=== PATIENT | female | born 1990 | race Caucasian/White ===

== ENCOUNTER 2022-11-15 09:48 | Emergency (ER) | payer BC, SELFPAY ==
--- NOTE | 2022-11-15 09:53 | ED.URI ---
HPI - URI/Sore Throat General Chief Complaint: Upper Respiratory Infection Stated Complaint: Strep symptoms Time Seen by Provider: 11/15/22 09:54 Source: patient Mode of arrival: ambulatory Limitations: no limitations History of Present Illness HPI Narrative: Shama is a 31-year-old female patient presenting to the clinic today with complaints of possible strep throat. She reports she has had a sore throat, low-grade fever, sinus pressure, and headache since last night. She reports she does work in [employer] and has had strep exposure. MD elicited complaint: fever and sore throat Related Data Home Medications Medication Instructions Recorded Confirmed alprazolam 2 mg tablet 2 mg PO TID PRN Anxiety 11/15/22 11/15/22 citalopram 20 mg tablet 20 mg PO DAILY 11/15/22 11/15/22 norgestimate 0.25 mg-ethinyl 1 tablet PO DAILY 11/15/22 11/15/22 estradiol 35 mcg tablet (Sprintec (28)) Allergies Allergy/AdvReac Type Severity Reaction Status Date / Time No Known Allergies Allergy Unverified 11/15/22 10:01 Review of Systems Review of Systems: Pertinent positives per HPI. Patient denies any fever, chills, rash, headache, visual changes, dizziness, cough, shortness of breath, chest pain, palpitations, nausea, vomiting, diarrhea, constipation, abdominal pain, or any urinary issues. PMFSH Comments At the time of my signature, I reviewed and agree with the nursing past medical, surgical, social, and family history. There is no relevant family history pertinent to the patient complaint. Exam Narrative: General: Well-developed, well nourished, in no apparent distress Head: Normocephalic, atraumatic Eyes: Pupils equally round and reactive to light bilaterally, EOM intact, sclera and conjunctive clear, no discharge, lids normal Ears: TMs intact and clear, ear canals clear, no drainage, grossly hearing normal. Nose: Nares patent, clear nasal discharge, no inflammation, no sinus tenderness. Mouth: Oral pharynx red with bilateral tonsillar enlargement without lesions or masses, good dentition, MMM. Neck: Supple, trachea midline, enlargement of anterior cervical nodes, no thyroid masses or goiter palpable. Cardio: Regular rate and rhythm, s1 and s2 normal, no murmur appreciated. Resp: Clear to auscultation bilaterally, no rhonchi, rales, wheezing or rubs Course Course Emergency Course: Portions of this record may have been created with voice recognition software. Level of Care: Express Care Visit Vital Signs Vital signs: Vital signs reviewed MDM - URI/Sore Throat MDM Narrative Medical decision making narrative: At the patient is resting comfortably on the exam table. Strep screen was obtained and was positive in the clinic. Prescription for amoxicillin was sent to the pharmacy. Supportive measures were discussed with the patient she voiced understanding discharge instructions agrees to treatment plan. Differential Diagnosis Differential diagnosis: Likely upper respiratory infection (COVID), otitis media, sinusitis, viral infection, bronchitis, influenza, pharyngitis and other (COVID) Discharge Plan Discharge Clinical Impression: Strep pharyngitis Patient Disposition: Home, Self-Care Condition: Stable Instructions: Antibiotic Form, Strep Throat (ED) Additional Instructions: Take prescription medications only as prescribed-amoxicillin Change your tooth brush in 24 hours after initiation of the antibiotics. Increase fluids and stay well hydrated Tylenol/motrin for pain/fever Flonase and OTC antihistamines as directed Vicks vapor rub to open sinuses Sinus rinses for congestion Cepacol spray, cough drops, throat lozenges, warm tea with honey/lemon, gargle salt water to soothe throat BRAT diet for diarrhea Clear liquids x 24 hours then advance as tolerated for nausea/vomiting Go to the ED if you develop a worsening in your condition- high fever not controlled by Tylenol
[2022-11-15 10:05] VITALS: BP 129/89; PULSE 100; RESP 16; TEMP 36.9; O2SAT 99
== END 2022-11-15 10:53 | disposition home or self-care (01) ==
PROVIDERS: Emergency Provider Nurse Practitioner Family; PCP Family Medicine
DX: J02.0 Streptococcal pharyngitis (principal); Z79.899 Other long term (current) drug therapy
CPT/HCPCS: 87880; 99213; G0463

== ENCOUNTER 2023-07-11 11:21 | Emergency (ER) | payer BC, SELFPAY ==
--- NOTE | ~2023-07-11 | US_ITS ---
EXAMINATION: US right upper quadrant DATE: 07/11/2023 13:06 INDICATION: Right upper quadrant abdominal pain. TECHNIQUE: Multiple grayscale and Doppler ultrasound images of the abdomen were obtained. COMPARISON: None FINDINGS: The visualized portions of the head, body, and tail of the pancreas are normal. There is di ffuse hepatic steatosis. There is normal flow in main portal vein. There are gallstones in the gallbl adder, which is normal in size. No gallbladder wall thickening. There is a positive sonographic Lionel y sign. The common duct is normal and measures 5 mm. IMPRESSION: 1. Cholelithiasis and positive sonographic Middleton sign, but no gallbladder distention or gallbladder wall thickening to suggest acute cholecystitis. 2. Diffuse hepatic steatosis. Reviewed, dictated and finalized at location A. IMPRESSION: 1. Cholelithiasis and positive sonographic Middleton sign, but no gallbladder dist ention or gallbladder wall thickening to suggest acute cholecystitis. 2. Diffuse hepatic steatosis.
[2023-07-11 11:21] VITALS: BP 176/108; PULSE 99; RESP 19; TEMP 36.4; O2SAT 100
--- NOTE | 2023-07-11 12:31 | ECG_ITS ---
[facility] [address] Test Date: 2023-07-11 Pat Name: Ember Woody Department: Room: Gender: F Lead Pharmacy Technician: ONESIMO : [id number] Requested By: Katie Vizcarra Order Number: [id number] Fredy MD: Michelet Frazier M.D. Measurements Intervals [place] Rate: 94 P: 59 IA: 127 QRS: 4 QRSD: 86 T: 24 QT: 374 QTc: 470 Interpretive Statements SINUS RHYTHM POSSIBLE LEFT ATRIAL ENLARGEMENT [-0.1mV P WAVE IN V1/V2] BORDERLINE ECG No previous ECG available for comparison Electronically Signed On 07-11-2023 14:58:27 CDT by Michelet Frazier M.D.
[2023-07-11] MEDS: ONDANSETRON INJ 4 MG/2 ML VIAL IV PUSH (13:12)
[2023-07-11] MEDS: KETOROLAC 30 MG/ML VIAL (*BKC) IV PUSH (13:13)
[2023-07-11] MEDS: FAMOTIDINE 20 MG/2 ML VIAL IV PUSH (13:16)
[2023-07-11 13:37] LABS: Basophils Percent Auto 0.2 % (0.2-1.2); Eosinophils Absolute Auto 0.2 K/mm3 (0-0.3); Eosinophils Percent Auto 1.3 % (0-4.4); Hematocrit 44.8 % (37.0-47.0); Hemoglobin 15.2 g/dL (12.0-15.0); Immature Granulocyte Absolute 0.04 K/mm3 (0.00-0.031); Immature Granulocyte Percent A 0.3 % (0-0.5); Lymphocytes Absolute Auto 2.09 K/mm3 (0.9-3.2); Lymphocytes Percent Auto 15.6 % (18.3-44.2); Mean Corpuscular HGB Conc 33.9 g/dl (32-36); Mean Corpuscular Hemoglobin 28.5 pg (26-34); Mean Corpuscular Volume 84.1 fl (80-100); Mean Platelet Volume 9.3 fl (7.4-10.4); Monocytes Absolute Auto 0.7 K/mm3 (0.1-0.6); Monocytes Percent Auto 4.9 % (2.6-8.5); Neutrophils Absolute Auto 10.4 K/mm3 (1.3-6.7); Neutrophils Percent Auto 77.7 % (45.5-73.1); Platelet Count Result 328 k/mm3 (150-375); Red Blood Count 5.33 M/mm3 (4.2-5.4); Red Cell Distribution Width 12.4 % (11.5-14.5); White Blood Count 13.4 K/mm3 (4.5-10.0)
[2023-07-11 13:51] LABS: Alanine Aminotransferase 38 U/L (6-35); Albumin Level 4.7 g/dL (3.5-5.1); Alkaline Phosphatase 121 U/L (38-126); Anion Gap 8 mmol/L (4-12); Aspartate Amino Transferase 35 U/L (14-36); Bilirubin,Total 0.6 mg/dL (0.2-1.3); Blood Urea Nitrogen 7 mg/dL (7-17); Calcium 9.2 mg/dL (8.4-10.2); Carbon Dioxide 22 mmol/L (22-30); Chloride 104 mmol/L (98-107); Estimated CRCL calculation 139 ml/min; Estimated Glomerular Filt Rate > 60; Glucose 113 mg/dL (65-110); Lipase 58 U/L (23-300); Potassium 3.6 mmol/L (3.4-5.0); Sodium 134 mmol/L (137-145)
[2023-07-11 13:55] LABS: Prothrombin Time 13.6 Seconds (11.1-14.7)
[2023-07-11 13:56] LABS: Partial Thromboplastin Time 27.2 Seconds (22.3-36.8)
[2023-07-11 14:02] LABS: Troponin I < 0.012 ng/mL (0.000-0.034)
--- NOTE | 2023-07-11 14:43 | ED.ABDPAIN ---
HPI - Abdominal Pain General Chief Complaint: Abdominal Pain Stated Complaint: abd pain Time Seen by Provider: 07/11/23 12:22 History of Present Illness HPI narrative: Pt presents with epigastric and RUQ abdominal pain since last night that started after eating fried chicken. Pt is also nauseated but denies fever. Pt still has GB. Related Data Home Medications Medication Instructions Recorded Confirmed alprazolam 2 mg tablet 2 mg PO TID PRN Anxiety 11/15/22 11/15/22 citalopram 20 mg tablet 20 mg PO DAILY 11/15/22 11/15/22 norgestimate 0.25 mg-ethinyl 1 tablet PO DAILY 11/15/22 11/15/22 estradiol 35 mcg tablet (Sprintec (28)) Allergies Allergy/AdvReac Type Severity Reaction Status Date / Time No Known Allergies Allergy Unverified 11/15/22 10:01 Review of Systems Review of Systems: All systems reviewed & are unremarkable except as noted in HPI and below Exam Const: General: healthy appearing Nutritional Appearance: well nourished Orientation/consciousness: patient oriented x3 Limitations: no limitations Resp: Effort & Inspection: normal respiratory effort Auscultation: clear to auscultation bilaterally Cardio: Rate: regular rate Rhythm: regular rhythm GI: GI Palp: Yes Soft to palpation and Yes Tenderness to palpation present (GI) (RUQ and epigastric region) Auscultation: normal bowel sounds Skin: General skin exam: normal color Wounds: no wounds Neuro: General: patient oriented x3, moves all extremities, no meningeal signs and CN's II-XI intact bilaterally Speech: normal speech Extrem: General: normal to inspection and no clubbing, cyanosis or edema Psych: Mental Status: mental status grossly normal Affect: normal affect Attitude: cooperative Course Vital Signs Vital signs: Vital Signs Temperature 97.6 F 07/11/23 11:21 Pulse Rate 99 07/11/23 11:21 Respiratory Rate 19 07/11/23 11:21 Blood Pressure 176/108 H 07/11/23 11:21 Pulse Oximetry 100 07/11/23 11:21 Oxygen Delivery Room Air 07/11/23 11:21 Temperature 98.6 F 07/11/23 14:57 Pulse Rate 80 07/11/23 14:57 Respiratory Rate 20 07/11/23 14:57 Blood Pressure 152/90 H 07/11/23 14:57 Pulse Oximetry 100 07/11/23 11:21 Oxygen Delivery Room Air 07/11/23 11:21 MDM - Abdominal Pain MDM Narrative Medical decision making narrative: pt develped RUQ and epigastric abdominal pain and nausea after eating fried chicken last night. will need labs and ruq sono. toradol and zofran. Pt feels better after meds. sono shows gallstones but no wall thickening. CMP and lipase normal, slight elevation of WBC. discussed with Dr. Churchill and agrees to see pt in follow up. Differential Diagnosis Differential diagnosis: Likely gastroenteritis, pancreatitis, small bowel obstruction and other (cholelithiasis or cholecystitis.) Lab Data 07/11/23 13:18 07/11/23 13:18 Labs: Lab Results 07/11/23 Range/Units 13:18 WBC 13.4 H (4.5-10.0) K/mm3 RBC 5.33 (4.2-5.4) M/mm3 Hgb 15.2 H (12.0-15.0) g/dL Hct 44.8 (37.0-47.0) % MCV 84.1 (80-100) fl MCH 28.5 (26-34) pg MCHC 33.9 (32-36) g/dl RDW 12.4 (11.5-14.5) % Plt Count 328 (150-375) k/mm3 MPV 9.3 (7.4-10.4) fl Immature Gran % (Auto) 0.3 (0-0.5) % Neut % (Auto) 77.7 H (45.5-73.1) % Lymph % (Auto) 15.6 L (18.3-44.2) % [place] % (Auto) 4.9 (2.6-8.5) % Eos % (Auto) 1.3 (0-4.4) % Baso % (Auto) 0.2 (0.2-1.2) % Lymph # (Auto) 2.09 (0.9-3.2) K/mm3 [place] # (Auto) 0.7 H (0.1-0.6) K/mm3 Eos # (Auto) 0.2 (0-0.3) K/mm3 Baso # (Auto) 0.0 (0.0-0.1) K/mm3 Abs Immat Gran (auto) 0.04 H (0.00-0.031) K/mm3 Absolute Neuts (auto) 10.4 H (1.3-6.7) K/mm3 Absolute Nucleated RBC 0.000 (0.0-0.012) K/mm3 Nucleated RBC % 0.0 (0.0-0.2) % PT 13.6 (11.1-14.7) Seconds INR 1.0 APTT 27.2 (22.3-36.8) Seconds Sodium 134 L (137-145) mmol/L Potassium 3.6 (3.4-5.0) mmol/L Chloride 104 (98-107)
[2023-07-11 14:57] VITALS: BP 152/90; PULSE 80; RESP 20; TEMP 37
== END 2023-07-11 15:57 | disposition home or self-care (01) ==
PROVIDERS: Emergency Provider Emergency Medicine; PCP Family Medicine
DX: K80.20 Calculus of gallbladder without cholecystitis without obstruction (principal); Z79.899 Other long term (current) drug therapy; Z79.3 Long term (current) use of hormonal contraceptives; K76.0 Fatty (change of) liver, not elsewhere classified
CPT/HCPCS: 36415; 76705; 80053; 83690; 84484; 85025; 85610; 85730; 93005; 96374; 96375; 99284; J1885; J2405

== ENCOUNTER 2023-07-28 11:54 | Outpatient (CLI) | payer BC, SELFPAY ==
[2023-07-28 12:19] LABS: Basophils Percent Auto 0.4 % (0.2-1.2); Eosinophils Absolute Auto 0.1 K/mm3 (0-0.3); Eosinophils Percent Auto 1.6 % (0-4.4); Hematocrit 43.3 % (37.0-47.0); Hemoglobin 14.1 g/dL (12.0-15.0); Immature Granulocyte Absolute 0.02 K/mm3 (0.00-0.031); Immature Granulocyte Percent A 0.2 % (0-0.5); Lymphocytes Absolute Auto 2.39 K/mm3 (0.9-3.2); Lymphocytes Percent Auto 28.1 % (18.3-44.2); Mean Corpuscular HGB Conc 32.6 g/dl (32-36); Mean Corpuscular Hemoglobin 28.1 pg (26-34); Mean Corpuscular Volume 86.4 fl (80-100); Mean Platelet Volume 9.1 fl (7.4-10.4); Monocytes Absolute Auto 0.6 K/mm3 (0.1-0.6); Monocytes Percent Auto 7.5 % (2.6-8.5); Neutrophils Absolute Auto 5.3 K/mm3 (1.3-6.7); Neutrophils Percent Auto 62.2 % (45.5-73.1); Platelet Count Result 325 k/mm3 (150-375); Red Blood Count 5.01 M/mm3 (4.2-5.4); Red Cell Distribution Width 12.7 % (11.5-14.5); White Blood Count 8.5 K/mm3 (4.5-10.0)
== END 2023-07-28 11:55 | disposition home or self-care (01) ==
LOC: ANHSURGERY 12:02
PROVIDERS: PCP Nurse Practitioner Family; Visit Provider Surgery
DX: K80.10 Calculus of gallbladder with chronic cholecystitis without obstruction (principal)
CPT/HCPCS: 36415; 85025

== ENCOUNTER 2023-08-03 00:22 | Day surgery (SDC) | payer BC, SELFPAY ==
[2023-07-27 14:20] VITALS: BMI 34.0
--- NOTE | 2023-07-27 14:21 | PC.NURSE ---
Report to the Outpatient Waiting Room, entrance under the green pavilion located off [facility], at time _1130_ on date _[id number]_. Planned Procedure Time: _130pm_. Time changes happen often and if your time is changed the preop area will call you the afternoon before. - You and your visitor will be asked to self-screen and do not enter if you have any COVID symptoms. - A mask is optional within the hospital at this time. Patients may have clear liquids (water, carbonated beverages, clear teas, apple juice) until 3 hours prior to surgery with a maximum of 20 ounces. - No food from midnight until time of surgery Take the following medications with a SIP of water the morning of surgery: __Citalopram, Sprintec and if needed Alprazolam DO NOT STOP ANY OF YOUR OTHER PRESCRIPTION MEDICATIONS PRIOR TO SURGERY ?EXCEPT THE FOLLOWING Medications to discontinue per physician None No Tums day of surgery. Date to take last dose Please no make-up, nail slovak, hairspray, perfume, deodorant, or body powder the day of surgery. No jewelry (including any body piercings) or valuables the day of surgery, leave them at home. Please take a shower or bath the night before, or the morning of, surgery with an antibacterial soap. Wear comfortable, loose fitting clothing. - Jewelry must be removed prior to entering the operating room. Rings and piercings that are not removed may be cut off. - The hospital will not accept responsibility for valuables. - Please leave all valuables, including medications, at home the day of surgery. If you are going home after surgery, a licensed bicycle taxi driver must drive you home. - NO public transportation without another adult if you receive anesthesia. - We recommend that an adult stay with you for 24 hours following discharge. - We also recommend that you do not drive, make important decision, drink alcoholic beverages, or take any drugs that were not prescribed by your health care provider for at least 24 hours after your discharge time. Follow any additional instructions given to you from your surgeon. If you or anyone in your household have experienced Covid symptoms in the past week, please notify your surgeon or the nurse liaison at the phone number below for possible testing. Telephone instructions given to _Ember__and asked if any additional questions and then verbalized understanding. Patient advised to call surgeon office or pre surgery nurse liaison [phone] if any additional questions.
[2023-08-03] VITALS (14 sets, daily range): BP systolic 136–178; BP diastolic 79–106; PULSE 83–102; RESP 12–20; TEMP 36.1–36.3; O2SAT 94–100
--- NOTE | 2023-08-03 08:05 | WPDHPUPDATE1 ---
History and Physical Update Update Date/Time: 08/03/23 08:05 History and Physical has been reviewed, including an updated exam of the patient. There are NO changes in the patient's condition. Risks, benefits, and alternatives have been discussed and questions answered. Patient agrees to proceed with procedure.
[2023-08-03] MEDS: LACTATED RINGERS 1,000 ML 30 ML IV CONT ×2 (08:30→12:35)
[2023-08-03] MEDS: ACETAMINOPHEN 500 MG TABLET 1000 MG PO (08:45)
[2023-08-03] MEDS: KETOROLAC 15 MG/ML VIAL (*BKC) IV PUSH (08:46)
[2023-08-03 09:02] LABS: Alanine Aminotransferase 35 U/L (6-35); Albumin Level 4.4 g/dL (3.5-5.1); Alkaline Phosphatase 83 U/L (38-126); Amylase 67 U/L (30-110); Aspartate Amino Transferase 30 U/L (14-36); Bilirubin,Total 0.7 mg/dL (0.2-1.3); Lipase 98 U/L (23-300)
--- NOTE | 2023-08-03 10:06 | WPDANESEPPF ---
Anes - Initial Pre Proc Eval Procedure: Operation Date: 08/03/23 10:00 Proposed Procedures p Laparoscopic Cholecystectomy - Vic Churchill MD Date/Time: 08/03/23 10:06 Surgeon: Vic Churchill MD Pre Op Diagnosis: Chr Cholecystitis with Stones Patient Data Age: 32 Gender: F Height: 1.7 m Weight: 99.1 kg Last Vital Signs Temp 36.3 C L 08/03/23 08:14 Pulse 102 H 08/03/23 08:14 Resp 18 08/03/23 08:14 BP 147/101 H 08/03/23 08:14 Pulse Ox 100 08/03/23 08:14 O2 Del Method Room Air 08/03/23 08:14 Allergies Allergy/AdvReac Type Severity Reaction Status Date / Time No Known Allergies Allergy Verified 08/03/23 08:21 Home Medications Medication Instructions Recorded Confirmed Type alprazolam 2 mg tablet 2 mg PO TID PRN Anxiety 11/15/22 08/03/23 History citalopram 20 mg tablet 20 mg PO DAILY 11/15/22 08/03/23 History norgestimate 0.25 mg-ethinyl 1 tablet PO DAILY 11/15/22 08/03/23 History estradiol 35 mcg tablet (Sprintec (28)) calcium carbonate (Tums) 200 mg PO BID PRN Acid Reflux 07/27/23 08/03/23 History famotidine 20 mg tablet (Pepcid) 20 mg PO BID 07/27/23 08/03/23 History Laboratory Tests 08/03/23 08:35 Total Bilirubin 0.7 mg/dL (0.2-1.3) Direct Bilirubin 0.0 mg/dL (0-0.3) AST 30 U/L (14-36) ALT 35 U/L (6-35) Alkaline Phosphatase 83 U/L (38-126) Total Protein 8.0 g/dL (6.3-8.2) Albumin 4.4 g/dL (3.5-5.1) Amylase 67 U/L (30-110) Lipase 98 U/L (23-300) Patient hx anesthesia problems: none Family hx anesthesia problems: none Results Review: All pre-operative results and documents have been reviewed as part of the pre-operative evaluation. [facility] Past Medical History Medical History Anxiety Surgical History Surgical History History of delivery x2 History of tubal ligation Family History Family History Mother Breast cancer Diabetes mellitus Hypertension Depression Grandparent Diabetes mellitus Hypertension Depression Father Hypertension Depression Other Asthma Social History Social History Smoking status: Never smoker Alcohol intake: never Do You Feel Safe in your Home?: Yes Lack of Transportation: No Lack of Food: Never True Current Housing: I Have Housing Concerned About Future Housing: No Difficulty Paying Gas/Electric Bills: No Difficulty Paying for Meds: No Currently Unemployed: No Education: Trade/Vocational Certificate Difficulty w/ Childcare or Family Care: No Living arrangements: with family Spiritual care concerns: No Anes - Eval Final PreProcedure Day of Procedure 08/03/23 10:06 Patient weight: obese Heart: regular rate and rhythm Lungs: clear to auscultation Airway: Mallampati scale class II Neurological: alert and oriented Last oral intake: >/= 8 hours ASA classification: II Emergent: no Anesthetic plan: proceed Anesthesia type and monitoring: general ETT and standard monitoring Results Review: All pre-operative results and documents have been reviewed as part of the pre-operative evaluation. Informed Consent: The patient's anesthetic plan and its attendant risks and benefits were discussed with the patient/family/POA. Questions were solicited and answers provided to the satisfaction of the patient/family/POA.
[2023-08-03] MEDS: ceFAZolin 2 GM/D5W 50 ML 2 GM/50 ML BAG IVPB (10:24)
[2023-08-03] MEDS: BUPIVACAINE/EPINEPHRINE 0.5% 10 ML VIAL 30 ML INFILTRATE (10:25)
[2023-08-03] MEDS: HEMOSTATIC MATRIX (SURGIFLO with THROMBIN) KIT 1 KIT XX (12:05)
--- NOTE | 2023-08-03 12:57 | W.PM.PROC2 ---
Procedure Note - Detailed Date of Procedure 08/03/23 Pre-op Diagnosis Chr Cholecystitis with Stones Post-op Diagnosis Other (Acute and chronic cholecystitis with gallstones with cystic duct obstruction) Procedure Performed Difficult laparoscopic cholecystectomy Surgeon Vic Churchill MD Career Placement Specialist Katina Wolfe KNOWLEDGE MANAGEMENT ADVISOR Anesthesia General and Local Indications Patient had a single episode of severe right upper quadrant abdominal pain after eating some fried chicken in early July. She went to the emergency room. Her liver enzymes were normal. She had tenderness in the epigastrium and right upper quadrant. Ultrasound showed she had gallstones and a positive sonographic Middleton sign although there was no gallbladder wall thickening or pericholecystic fluid. She improved while in the emergency room and was discharged. I saw her in the office. She is taken to surgery now for laparoscopic cholecystectomy. Findings Patient actually had severe cholecystitis, both acute and chronic. There were numerous adhesions to the gallbladder and its wall was very thickened and hypervascular. The neck of the gallbladder and the cystic duct were both dilated although no stones were noted in the cystic duct and the liver enzymes prior there is surgery were normal. Dissecting out the cholecystohepatic triangle was exceptionally difficult. Literally any dissection even using cautery resulted in bleeding. The distal gallbladder and proximal cystic duct had spiraled as the cystic artery was laying over these structures and somehow kept the length constant while the distal gallbladder and proximal cystic duct enlarged due to pressure. Gallbladder was very difficult to grasp and appeared to be chock full of stones. Falciform ligament was extremely large and thickened and required us to place a 5th port in the left mid abdomen to retract not only the falciform ligament but some of the medial segment of the left lobe of the liver so that we could see the edge of the gallbladder at the liver surface. The surgery took nearly 2 hours which is 3 or even 4 times longer than usual. Blood loss was 100 cc which is at least 4 times more than normal. The surgery was extremely difficult clearly 1 of my top 10% most difficult cholecystectomies. Description of Procedure Patient was taken to surgery and induced into general anesthesia. The abdomen is prepped and draped. Trocars were placed in the usual fashion. The initial trocars were in the epigastrium and were to come out on the right side of the falciform ligament. Unfortunately, the liver was enlarged with fatty change and they came out on the left side of a very fatty falciform ligament and caused blunt injury to the lateral segment of the left lobe of the liver. This led to bleeding. The blood was suctioned away and the areas of injury were cauterized and made hemostatic. During the surgery I came back to this area several times. Once the trocars were in position, we tried to retract the gallbladder anterosuperiorly but there was very limited mobility of the liver with significant fatty change. I placed a 5th 5 mm port in the left mid abdomen and used this to retract the falciform ligament as well as the medial segment of the left lobe of the liver for better exposure. A laparoscopic Kittner retractor was used for this. With some traction on the gallbladder, I took down adhesions which were largely omental and then just inflammatory adhesions in the triangle of Calot. We slowly elevated the gallbladder as much as possible and then pressed traction on the infundibulum. Dissection in the cholecystohepatic triangle was very slow as it was hypervascular with dense adhesions. The anatomy was not clear. Despite normal LFTs both in the emergency room and preoperatively, the cystic duct and common bile duct appeared somewhat dilated. Slowly the anatomy was delineated. It became evident that the cystic artery was actually laying over the top o
[2023-08-03] MEDS: fentaNYL CITRATE INJ (*CRX) 100 MCG/2 ML VIAL 25 MCG IV PUSH ×8 (13:34→14:12)
--- NOTE | 2023-08-03 13:54 | SUR.PHASEI ---
pt bp elevated in pacu. dr garcía aware. Wants pt to follow up with primary dr for bp control.
[2023-08-03] MEDS: ONDANSETRON INJ 4 MG/2 ML VIAL IV PUSH (13:57)
[2023-08-03] MEDS: oxyCODONE HCL (*CRX) 5 MG TAB IR PO (15:13)
[2023-08-03] MEDS: diazePAM INJ (*CRX) 10 MG/2 ML SYRINGE 5 MG IV PUSH (15:13)
== END 2023-08-03 15:42 | disposition home or self-care (01) ==
PROVIDERS: PCP Nurse Practitioner Family; Visit Provider Surgery
PROC: 0FT44ZZ Resection of Gallbladder, Percutaneous Endoscopic Approach (ICD-10-PCS; CPT 47562; principal; 2023-08-03 10:00)
DX: K80.20 Calculus of gallbladder without cholecystitis without obstruction (principal); R59.9 Enlarged lymph nodes, unspecified; F41.9 Anxiety disorder, unspecified; E66.9 Obesity, unspecified; Z68.34 Body mass index [BMI] 34.0-34.9, adult; Z98.890 Other specified postprocedural states; Z98.51 Tubal ligation status; Z80.3 Family history of malignant neoplasm of breast
CPT/HCPCS: 47562; 36415; 80076; 82150; 83690; 88304; A9270; J0690; J1100; J1170; J1200; J1885; J2250; J2371; J2405; J2704; J3010; J3360; J7120